=== PATIENT | female | born 1985 | race Caucasian/White ===

== ENCOUNTER 2022-10-12 02:55 | Emergency (ER) | payer BC ==
[2022-10-12] MEDS ORDERED: oxyCODONE 5 MG Tab PO ONE (03:17)
[2022-10-12] MEDS ORDERED: Benzocaine 20% Topical Spray UD MUCMEM ONE (03:18)
[2022-10-12] MEDS ORDERED: Lidocaine 2% Viscous Solution 15 ML UD PO ONE (03:18)
== END 2022-10-12 03:25 | disposition home or self-care (01) ==
LOC: MW.ED 02:55
DX: K08.89 Other specified disorders of teeth and supporting structures (principal); Z79.899 Other long term (current) drug therapy
CPT/HCPCS: 99283; A9270